=== PATIENT | male | born 1980 | race African-American/Black ===

== ENCOUNTER 2020-08-02 19:36 | Emergency (ER) | payer BC, SELFPAY ==
[2020-08-02] MEDS ORDERED: Ondansetron PF 4 MG/2 ML Vial ONE (20:49)
[2020-08-02] MEDS ORDERED: Ketorolac Tromethamine 30 MG/ML VIAL ONE (20:49)
[2020-08-02 21:02] LABS: Bilirubin Neg (Negative); Blood, Urine 150 (Negative); Clarity Clear (Clear); Glucose, Urine (Dipstick) Normal (Negative); Ketone, Urine Negative (Negative); Leukocyte Negative (Negative); Nitrite Negative (Negative); Protein, Urine (Dipstick) Negative (Neg-Trace); Urobilinogen Normal mg/dL (Less than 2)
[2020-08-02 21:16] LABS: Squamous Epithelial 0-3 HPF (0-3); WBC/HPF 0-3 HPF (0-3)
[2020-08-02 21:17] LABS: Bacteria/HPF 1+ HPF (None Seen)
[2020-08-02] MEDS ORDERED: cefTRIAXone\\ROCEPHIN 500 MG VIAL ONE (22:35)
[2020-08-02] MEDS ORDERED: Lidocaine 1% (PF) 30 ML VIAL ONE (22:36)
== END 2020-08-02 23:00 | disposition home or self-care (01) ==
LOC: CSHERS 19:36
DX: N50.812 Left testicular pain (principal)
CPT/HCPCS: 76870; 81003; 81015; 87086; 93976; 96372; 96374; 96375; J0696; J1885; J2001; J2405